=== PATIENT | male | born 1955 | race Caucasian/White ===

== ENCOUNTER 2021-12-01 04:07 | Emergency (ER) | payer OTHER, MEDICARE, MEDICAID ==
[2021-12-01] MEDS ORDERED: Ibuprofen 400 MG Tab PO ONE (05:07)
== END 2021-12-01 05:26 | disposition home or self-care (01) ==
LOC: JP.ED 04:07
DX: S83.92XA Sprain of unspecified site of left knee, initial encounter (principal); S76.112A Strain of left quadriceps muscle, fascia and tendon, initial encounter; I10 Essential (primary) hypertension; Z87.891 Personal history of nicotine dependence; W07.XXXA Fall from chair, initial encounter
CPT/HCPCS: 73564; 99283; A9270; 99281

== ENCOUNTER 2024-03-14 18:11 | Emergency (ER) | payer MEDICARE ==
[2024-03-14 19:04] LABS: BASOPHILS ABSOLUTE AUTO 0.05 K/uL (0.00-0.10); BASOPHILS PERCENT AUTO 0.5 % (0.1-1.3); EOSINOPHILS ABSOLUTE AUTO 0.32 K/uL (0.00-0.40); EOSINOPHILS PERCENT AUTO 3.2 % (0.0-5.4); HEMATOCRIT 42.4 % (38.4-49.7); HEMOGLOBIN 15.4 g/dL (12.9-16.9); IMMATURE GRAN ABSOLUTE AUTO 0.04 K/uL (0.00-0.23); IMMATURE GRAN PERCENT AUTO 0.4 % (0.0-0.7); LYMPHOCYTES ABSOLUTE AUTO 2.01 K/uL (0.8-3.3); LYMPHOCYTES PERCENT AUTO 19.9 % (11.4-47.7); MEAN CORPUSCULAR HEMOGLOBIN 32.6 pg (31.6-35.5); MEAN CORPUSCULAR HGB CONC 36.3 g/dL (31.6-35.5); MEAN CORPUSCULAR VOLUME 89.8 fL (81.4-99.0); MONOCYTES ABSOLUTE AUTO 1.16 K/uL (0.20-0.90); MONOCYTES PERCENT AUTO 11.5 % (3.3-12.6); NEUTROPHILS ABSOLUTE AUTO 6.53 K/uL (1.0-7.6); NEUTROPHILS PERCENT AUTO 64.5 % (40.0-78.1); PLATELET COUNT,PLT 236 K/uL (130-375); RED BLOOD CELL COUNT 4.72 M/uL (4.14-5.76); WHITE BLOOD CELL COUNT,WBC 10.1 K/uL (3.2-11.0)
[2024-03-14] MEDS: Sodium Chloride 0.9% 1,000 ML IV SCH (19:27)
[2024-03-14 19:32] LABS: ALANINE AMINOTRANSFERASE,ALT 40 U/L (12-78); ALBUMIN 3.9 g/dL (3.4-5.0); ALKALINE PHOSPHATASE 85 U/L (46-116); ANION GAP 9.5 mmol/L (5.0-14.0); ASPARTATE AMNIOTRANSFERASE,AST 23 U/L (15-37); BILIRUBIN TOTAL 0.4 mg/dL (0.2-1.0); BLOOD UREA NITROGEN,BUN 24 mg/dL (7-18); CALCIUM 8.9 mg/dL (8.5-10.1); CARBON DIOXIDE,CO2 29 mmol/L (21-32); CHLORIDE,CL 104 mmol/L (100-108); CREATININE 1.4 mg/dL (0.8-1.3); ESTIMATED GFR 55 mL/min (>60); GLUCOSE RANDOM 90 mg/dL (74-106); POTASSIUM,K 3.6 mmol/L (3.6-5.2); PROTEIN TOTAL,TP 7.9 g/dL (6.4-8.2); SODIUM,NA 142 mmol/L (140-148)
[2024-03-14] MEDS: Iopamidol 755 Mg/ML 100 ML Bottle IV ONE (19:52)
[2024-03-14] MEDS: Sodium Chloride 0.9% 100 ML IV ONE (19:52)
[2024-03-14] MEDS: Sodium Chloride 0.9% 10 ML Syringe FLUSH ONE (19:52)
[2024-03-14] MEDS ORDERED: Naloxone 0.4 MG/ML SDV IVPUSH ONE (21:52)
== END 2024-03-14 22:24 | disposition home or self-care (01) ==
LOC: JP.ED 18:11
DX: I82.403 Acute embolism and thrombosis of unspecified deep veins of lower extremity, bilateral (principal); I10 Essential (primary) hypertension; Z86.16 Personal history of COVID-19; Z79.899 Other long term (current) drug therapy
CPT/HCPCS: 36415; 71275; 80053; 84484; 85025; 93005; 96360; 99285-25; J3490; J7030; Q9967